=== PATIENT | female | born 2000 | race Two or more races ===

== ENCOUNTER 2021-04-12 22:24 | Emergency (ER) | payer OTHER ==
[~2021-04-12] VITALS: Ht 177.8 cm; Wt 99.3 kg
[2021-04-12 22:25] VITALS: BP 141/88
[2021-04-12] MEDS ORDERED: ACETAMINOPHEN 325 MG TAB PO ONE (22:45)
[2021-04-13 02:38] LABS: Urine Bacteria NONE SEEN /hpf (None Seen); Urine Blood TRACE /uL (Negative); Urine Specific Gravity 1.024 (1.001-1.035); Urine WBC 81 /hpf (0 - 5); Urine WBC Clumps PRESENT /hpf (None Seen)
== END 2021-04-13 02:54 | disposition left against medical advice (07) ==
LOC: ER 22:24
DX: R51.9 Headache, unspecified (principal); R50.9 Fever, unspecified; Z53.21 Procedure and treatment not carried out due to patient leaving prior to being seen by health care provider; Z20.822 Contact with and (suspected) exposure to COVID-19
CPT/HCPCS: 36415; 81001; 87426

== ENCOUNTER 2022-09-24 06:14 | Emergency (ER) | payer OTHER ==
[~2022-09-24] VITALS: Ht 180.3 cm; Wt 98.6 kg
[2022-09-24 06:52] LABS: Basophils # (auto) 0.1 10 ^3/uL (0-0.2); Basophils % (auto) 0.6 % (0.0-2.0); Eosinophils # (auto) 0.2 10 ^3/uL (0-0.8); Eosinophils % (auto) 1.5 % (0.0-7.0); Hematocrit 46.5 % (36.0-46.0); Hemoglobin 16.1 g/dL (12.2-16.2); Lymphocytes # (auto) 4.1 10 ^3/uL (0.4-5.4); Lymphocytes % (auto) 35.9 % (10.0-50.0); Mean Corpuscular Hemoglobin 31.5 pg (28.0-32.0); Mean Corpuscular Hgb Conc. 34.6 g/dL (32.0-36.0); Monocytes # (auto) 0.8 10 ^3/uL (0-1.3); Neutrophils # (auto) 6.3 10 ^3/uL (1.6-8.6); Nucleated Red Blood Cells % 0.1 %; Red Blood Cells 5.11 10^6/uL (4.0-5.20); Red Cell Distribution Width 12.4 % (11.8-14.3); White Blood Cell 11.4 10^3/uL (4.4-10.8)
[2022-09-24 07:10] LABS: Albumin 4.4 g/dL (3.4-5.0); Calcium 8.9 mg/dL (8.5-10.1); Potassium 3.7 mmol/L (3.5-5.1)
[2022-09-24 07:14] LABS: BUN/Creatinine Ratio 16.2 (10.0-20.0); Bilirubin, Total 0.4 mg/dL (0.2-1.0); Total Protein 8.7 g/dL (6.4-8.2)
[2022-09-24] MEDS ORDERED: InsuLIN REG 1unit/0.01ml Soln (100units/ml) SC ONE (08:00)
[2022-09-24 08:19] LABS: Urine Bacteria FEW /hpf (None Seen); Urine Blood 3+ /uL (Negative); Urine Mucus FEW (None Seen); Urine Specific Gravity 1.046 (1.001-1.035); Urine WBC 32 /hpf (0 - 5)
[2022-09-24 08:34] LABS: Alcohol, Urine < 3.0 mg/dL (0-10); Amphetamine Screen, Urine NEGATIVE (NEGATIVE); Barbiturate Scree,Urine NEGATIVE (NEGATIVE); Benzodiazephine Screen, Urine NEGATIVE (NEGATIVE); Cannabinoid Screen, Urine POSITIVE (NEGATIVE); Cocaine Screen, Urine NEGATIVE (NEGATIVE); Phencyclidine Screen, Urine NEGATIVE (NEGATIVE)
[2022-09-24 08:41] LABS: Opiate Scree,Urine NEGATIVE (NEGATIVE)
[2022-09-24] MEDS ORDERED: METF-370 PO (09:18)
[2022-09-24] MEDS ORDERED: BACDST PO (09:18)
[2022-09-24 09:24] VITALS: BP 129/83; PULSE 89; RESP 18; O2SAT 98
== END 2022-09-24 09:26 | disposition home or self-care (01) ==
LOC: ER 06:14
DX: R07.89 Other chest pain (principal); N39.0 Urinary tract infection, site not specified; F12.10 Cannabis abuse, uncomplicated; E11.9 Type 2 diabetes mellitus without complications
CPT/HCPCS: 36415; 71045; 80053; 80307; 81001; 82962; 84484; 85025; 93005; 96372; 99285; J1815